=== PATIENT | male | born 1995 | race Caucasian/White ===

== ENCOUNTER 2018-02-16 15:31 | Emergency (ER) | payer OTHER ==
[2018-02-16] MEDS: KETOROLAC 60 MG INJ IM (17:27)
== END 2018-02-16 19:23 | disposition home or self-care (01) ==
LOC: FTE 15:31
DX: S82.51XA Displaced fracture of medial malleolus of right tibia, initial encounter for closed fracture (principal); J45.909 Unspecified asthma, uncomplicated; X58.XXXA Exposure to other specified factors, initial encounter; Y92.310 Basketball court as the place of occurrence of the external cause
CPT/HCPCS: 29515; 73610-RT; 96372; 99284-25